=== PATIENT | female | born 1995 | race Caucasian/White ===

== ENCOUNTER 2021-08-11 20:03 | Emergency (ER) | payer MEDICAID ==
[~2021-08-11] VITALS: Ht 152.4 cm; Wt 79.0 kg
[2021-08-11 21:29] LABS: BASOPHILS % 0.5 % (0.0-2.0); EOSINOPHILS % 0.8 % (0.0-5.0); HEMATOCRIT. 40.7 % (36.0-48.0); LYMPHOCYTES % 26.6 % (20.0-50.0); MEAN CORPUSCULAR HEMOGLOBIN 29.1 pg (28.0-32.0); MEAN CORPUSCULAR VOLUME 84.9 fL (81.0-99.0); MEAN PLATELET VOLUME 8.2 fl (7.4-10.4); NEUTROPHILS % 67.1 % (40.0-76.0); PLATELET 313 x1000/uL (130-400); RED CELL DISTRIBUTION WIDTH 13.6 % (11.6-14.6)
[2021-08-11 21:34] LABS: CHLORIDE 108 mEq/L (98-107)
[2021-08-11 21:45] LABS: B-HCG QUANTITATIVE 112 mIU/mL (<3)
[2021-08-11 22:48] VITALS: BP 136/78
== END 2021-08-11 22:49 | disposition home or self-care (01) ==
LOC: ER 20:09
DX: O03.9 Complete or unspecified spontaneous abortion without complication (principal)
CPT/HCPCS: 36415; 76801; 80053; 81025; 84702; 85025; 86850; 86900; 99284

== ENCOUNTER 2021-12-03 10:54 | Emergency (ER) | payer MEDICAID ==
[~2021-12-03] VITALS: Ht 157.5 cm; Wt 79.0 kg
[2021-12-03 15:41] LABS: HCG SCREEN NEGATIVE
[2021-12-03] MEDS ORDERED: ACET-2708 MT (15:54)
[2021-12-03 18:31] VITALS: BP 116/74
== END 2021-12-03 18:27 | disposition home or self-care (01) ==
LOC: ER 10:54
DX: S39.012A Strain of muscle, fascia and tendon of lower back, initial encounter (principal); W18.30XA Fall on same level, unspecified, initial encounter; Y93.89 Activity, other specified; Y92.89 Other specified places as the place of occurrence of the external cause; Y99.8 Other external cause status
CPT/HCPCS: 36415; 84703; 86850; 86900; 99283